=== PATIENT | male | born 1940 | race Caucasian/White ===

== ENCOUNTER → 2017-01-25 | Outpatient (CLI) | payer OTHER ==
[~2017-01-25] MED LIST: ACETAMINOPHEN325 M1 PO; ALLOPURINOL 30300 M1; AVELOX 400 MG400 M1 PO; CLOBETASOL PROP50 ML TOP; DESOXIMETASONE15 G1 TP; DILAUDID 2 MG TA2 MG PO; HYDROCODON-ACE1 EAC5 PO; IBUPROFEN 200200 M1 PO; LEVOTHYROXINE0.05 MG PO; LISINOPRIL5 MG PO; MELATONIN3 MG PO; MS CONTIN30 MG PO; MUCINEX TA600 MG/TA1 PO; MUCINEX TA600 MG/TA2 PO; MUCINEX TA600 MG/TAB PO; NEURONTIN 300300 M1 PO; NORCO 10-325 T1 EACH PO; OMEPRAZOLE 20 M20 M1 PO; OXYCONTIN30 MG PO; POTASSIUM20 PO; RELAFEN750 MG PO; TORSEMIDE100 MG PO; TRAMADOL 50 MG50 MG PO; TYLENOL EX-STR500 M2 PO; TYLENOL PM PO; TYLENOL325 MG PO; ZESTRIL5 MG PO; lidocaine 5% TOP
== END ==
LOC: RAD 11:30
DX: M47.892 Other spondylosis, cervical region (principal)